=== PATIENT | female | born 1965 | race Caucasian/White ===

== ENCOUNTER → 2016-06-03 | Outpatient (CLI) | payer OTHER ==
[~2016-06-03] MED LIST: B-CO1CAP17 PO; CALCTAB7 PO; CHOL100027 PO; CLIN300C10 PO; CYAN100020 PO; IBUP-1427 PO; MECL1TAB42 PO; PROAIR INH; VITACAP26 PO
--- NOTE | 2016-06-03 15:48 | MAMMOGRAPHY REPORT ---
BILATERAL DIGITAL SCREENING MAMMOGRAM TOMOSYNTHESIS WITH CAD: 06/03/2016 CLINICAL HISTORY: Routine screening. Patient has no complaints. TECHNIQUE: Breast tomosynthesis in addition to standard 2D mammography was performed. Current study was also evaluated with a Computer Aided Detection (CAD) system. COMPARISON: Comparison is made to exams dated: 05/29/2015 mammogram, 05/23/2014 mammogram, and 05/02 mammogram - [facility]. BREAST COMPOSITION: The tissue of both breasts is heterogeneously dense, which may obscure small ma sses. FINDINGS: There is a small cluster of punctate microcalcifications in the right upper outer posteri or breast, for which additional spot magnification views are recommended. There is questionable arc hitectural distortion in the lateral posterior left breast, only seen on the CC tomosynthesis images (slice 28), for which additional spot compression tomosynthesis HD views and possibly ultrasound ar e recommended. There are numerous stable morphologically normal lymph nodes projecting in each axillary tail and ax illary region on the MLO views. A few benign rim calcifications in the breasts. No other suspiciou s mass, architectural distortion or cluster of microcalcifications is seen. IMPRESSION: ACR BI-RADS CATEGORY 0: INCOMPLETE EVALUATION: NEED ADDITIONAL IMAGING EVALUATION The small cluster of punctate microcalcifications in the right upper outer quadrant, and questionabl e architectural distortion in the left lateral breast need additional imaging evaluation. The patient will be called to schedule an appointment. Approximately 10% of breast cancers are not detected with mammography. A negative mammographic repor t should not delay biopsy if a clinically suggestive mass is present. Narda Pierre M.D. ay/:06/03/2016 14:08:47 Cuprous Chloride Helper: Dominga SOLIS(Maribel)(Alissa)(BD), [facility] letter sent: Addl Imaging 0 BI-RADS Code: ACR BI-RADS Category 0: Incomplete Evaluation: Need Additional Imaging Evaluation
== END | disposition home or self-care (01) ==
LOC: C.MAMM 11:38
PROVIDERS: ATTEND Family Medicine
DX: Z12.31 Encounter for screening mammogram for malignant neoplasm of breast (principal); R92.0 Mammographic microcalcification found on diagnostic imaging of breast; R92.8 Other abnormal and inconclusive findings on diagnostic imaging of breast

== ENCOUNTER → 2016-06-10 | Outpatient (CLI) | payer OTHER ==
--- NOTE | 2016-06-10 14:55 | MAMMOGRAPHY REPORT ---
BILATERAL DIGITAL DIAGNOSTIC MAMMOGRAM TOMOSYNTHESIS: 06/10/2016 CLINICAL HISTORY: 50-year-old woman called back from screening mammography for clustered microcalcif ications in the right breast, and questionable architectural distortion in the left breast. Patient has a history of a benign surgical excision in the left breast for a papilloma. TECHNIQUE: Spot magnification right CC and ML; spot compression CC and MLO 2-D digital and tomosynt hesis images of the left upper outer quadrant were obtained. COMPARISON: Comparison is made to exams dated: 06/03/2016 mammogram, 05/29/2015 mammogram, 05/23/2014 mammogram, 05/17/2013 mammogram, 05/11/2012 mammogram, and 04/29/2011 mammogram - [facility]. BREAST COMPOSITION: The tissue of both breasts is heterogeneously dense, which may obscure small ma sses. FINDINGS: There is near effacement of the question of architectural distortion in the lateral poste rior left breast on the CC view. No corresponding architectural distortion, suspicious mass or susp icious calcifications are seen on the spot compression MLO views of the left breast. When comparing to prior available mammograms, the spot compression left CC view appears similar dating back to at least 02/22/2008, therefore likely benign. There is a small grouping of layering microcalcification s in the superior right breast, approximately 6 cm from the nipple. 9 cm from the nipple, there is a tiny, 2 mm grouping of faint punctate microcalcifications in the upper outer posterior right breas t. When compared to prior available mammograms, these have been present dating back to at least 03/2012, therefore likely benign. However, a follow-up right mammogram including spot magnification views is recommended to ensure stability in 6 months. No suspicious mass, architectural distortion or other cluster of microcalcifications is seen in the visualized right breast. IMPRESSION: ACR-BI-RADS CATEGORY 3: PROBABLY BENIGN 1. Effacement of the question of architectural distortion in the lateral left breast with additional supplemental mammographic views. The parenchymal pattern of the spot compression left CC view appe ars very similar dating back to at least 2007, confirming normal fibroglandular tissue. No further close follow-up is needed at this time. 2. 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 However, given the increased conspicuity, repeat spot magnification views are recommended to ensure stability in 6 months. These results and recommendations were discussed with the patient at the time of the exam. She tent atively scheduled a follow-up appointment prior to leaving our department. Approximately 10% of breast cancers are not detected with mammography. A negative mammographic repor t should not delay biopsy if a clinically suggestive mass is present. Narda Pierre M.D. ay/:06/10/2016 10:10:47 Clerical Car Checker: Rosamaria SOLIS(Maribel)(Alissa), [facility] letter sent: Follow Up Recommended 3 BI-RADS Code: ACR-BI-RADS Category 3: Probably Benign
== END | disposition home or self-care (01) ==
LOC: C.MAMM 09:28
PROVIDERS: ATTEND Family Medicine
DX: R92.0 Mammographic microcalcification found on diagnostic imaging of breast (principal); R92.8 Other abnormal and inconclusive findings on diagnostic imaging of breast

== ENCOUNTER → 2016-08-05 | Outpatient (CLI) | payer OTHER | END | disposition home or self-care (01) | LOC: C.PAPS 11:44 | PROVIDERS: ATTEND Obstetrics & Gynecology | DX: Z01.419 Encounter for gynecological examination (general) (routine) without abnormal findings (principal) ==

== ENCOUNTER 2016-09-28 15:34 | Emergency (ER) | payer OTHER ==
[~2016-09-28] VITALS: Ht 157.5 cm; Wt 81.1 kg
[2016-09-28 15:40] VITALS: TEMP 37; Ht 157.5 cm; Wt 81.1 kg
[2016-09-28] MEDS ORDERED: CLIN300C10 PO (16:35)
[2016-09-28 16:43] VITALS: BP 113/58; PULSE 88; O2SAT 100
[2016-09-28] MEDS ORDERED: PROAIR INH (16:43)
[2016-09-28] MEDS ORDERED: CHOL100027 PO (16:43)
[2016-09-28] MEDS ORDERED: CYAN100020 PO (16:43)
[2016-09-28] MEDS ORDERED: MECL1TAB42 PO (16:43)
[2016-09-28] MEDS ORDERED: B-CO1CAP17 PO (16:43)
[2016-09-28] MEDS ORDERED: VITACAP26 PO (16:43)
[2016-09-28] MEDS ORDERED: IBUP-1427 PO (16:43)
[2016-09-28] MEDS ORDERED: CALCTAB7 PO (16:43)
--- NOTE | 2016-09-29 10:50 | EMERGENCY ROOM VISIT NOTE ---
ED Visit Note First contact with patient: 15:46 CHIEF COMPLAINT: I have a boil or tickle my right buttock. HISTORY OF PRESENT ILLNESS: Ms. Esparza is an 50-year-old white female who ambulates into the ED complaining of an unspecified skin lesion on her right buttock. She reports 2 days ago she was taking a shower and noticed a small lump when she was washing her buttocks. She was not able to visualize the area. She reports she scratched the area and felt a small popping sensation and did not think anymore of it. Throughout the rest of that day she noted some mild discomfort in the area and noted that the area seemed to be increasing in size and felt warm to the touch. Earlier this morning when she took a shower once again the area felt more tender, larger and warmer. Once again there was a small lump and she reports she squeezed it multiple times and she released a purulent drainage from the wound. She went to work and throughout the day she started having increasing pain and when she felt the area once again it felt more tender and warm to the touch. Currently she describes her discomfort in this area as an achy sensation that becomes sharp with palpation or sitting on her buttocks. At rest she rates her discomfort 5/10 and it increased as a 7/10 when the area is palpated. She has not identified any alleviating factors related to her discomfort. She has not taken any medications for her discomfort prior to arrival at the hospital. Associated with her discomfort she reports she has felt intermittently warm but denies any olive fevers, she has been nauseated but has not vomited. She denies chills, sweats, upper respiratory tract symptoms, cough, wheezing, shortness of breath, chest pain, abdominal pain, diarrhea, constipation, urinary symptoms REVIEW OF SYSTEMS: As noted above in History of Present Illness; a body systems were reviewed with the patient and found to be negative unless noted above otherwise. PAST MEDICAL HISTORY: Unspecified breast surgery and tubal ligation. CURRENT MEDICATION: Albuterol, vitamin D, Caltrate, meclizine, vitamin B12, Nephrocaps, vitamin C and E. ALLERGIES TO MEDICATION: Sulfa. SOCIAL HISTORY: Patient is currently employed; she lives with her family and feels safe in her home environment; she admits to tobacco and alcohol use. PHYSICAL EXAM: Vital Signs: Date Time Temp Pulse Resp B/P Pulse Ox O2 Delivery O2 Flow Rate FiO2 09/28/16 16:43 88 16 113/58 100 09/28/16 15:40 37.0 91 20 142/81 96 Room Air General: 50 year-old white female in mild acute distress due to pain, nontoxic appearing, afebrile and hemodynamically stable. Neurological: Awake, alert and oriented to person, place and time. Answering questions appropriately and following commands. Skin: Warm, dry and pink. Right Buttock: There is an indurated area in the medial border of the buttock but not extending into the gluteal fold which measures about 3 cm in diameter. The area is not fluctuant and there is no pointing. The area is open and shows a small amount of dried purulent material on the external tissues. No additional material was able to be expressed. There is a moderate son of inflammation around the fluctuant area but no lymphangitis. Thorax: Lungs sounds are clear to auscultation and equal bilaterally with symmetrical chest wall movement. No wheezing, rales or rhonchi. No increased respiratory effort. Abdomen: Flat, soft and nontender. Positive bowel sounds in all quadrants. No guarding or rigidity. ED COURSE: Patient is assessed as noted above. Patient was offered pain medications and refused. Her area of erythema was demarcated with a pen. Patient was educated about her condition and instructed on her treatment plan; she verbalized understanding and agreement with this plan. CLINICAL IMPRESSION: Cellulitis and early abscess of the right buttock. DISPOSITION: Patient discharged to home in stable condition; prior to departure she was reassessed and subjectively reported she was feeling better. PLAN: Comfort measures and increasing signs of infection were discussed with the patient. Patient was prescribed clindamycin 300 mg 4 times a day for 10 days. Patient was encouraged to return to the emergency department in 36-48 hours for recheck or sooner for any signs of increasing infection or any new/concerning symptoms.
== END 2016-09-28 16:49 | disposition home or self-care (01) ==
LOC: C.EDB 15:36 → C.EDD 16:49
DX: L03.317 Cellulitis of buttock (principal); L02.31 Cutaneous abscess of buttock; F17.200 Nicotine dependence, unspecified, uncomplicated; Z98.51 Tubal ligation status

== ENCOUNTER 2016-09-30 13:39 | Emergency (ER) | payer OTHER ==
[~2016-09-30] VITALS: Ht 157.5 cm; Wt 80.4 kg
[2016-09-30 13:58] VITALS: TEMP 37.7; Ht 157.5 cm; Wt 80.4 kg
--- NOTE | 2016-09-30 15:24 | DIAGNOSTIC IMAGING REPORT ---
Ultrasound right buttock RIGHT EXTREMITY NONVASCULAR LIMITED CLINICAL HISTORY: R buttock cellulitis vs abscess Right infection TECHNIQUE: Ultrasound COMPARISON STUDY: None FINDINGS: Ultrasound over the right buttock region confirms presence of a subcutaneous rather complex irregular collection measuring approximate 4 x 2 cm. This is a deep to what appears to be a superficial scab of the skin surface. Material within this is rather complex. Diagnostic considerations must include a small abscess with surrounding mild cellulitis-type change. IMPRESSION: 1. Irregular 4 x 2 cm complex collection deep to a superficial skin lesion. 2. Diagnostic considerations must include cellulitis with a central complex collection or abscess. Electronically signed by: Saul Hidalgo M.D. 09/30/2016 3:24 PM Dictated Date/Time: 09/30/2016 3:16 PM
[2016-09-30] MEDS ORDERED: XYLOCAINE 1%/SOD BICARB 20 ML VIAL INFIL ONE (15:30)
[2016-09-30 16:26] VITALS: BP 118/57; PULSE 91; O2SAT 96
--- NOTE | 2016-09-30 22:23 | EMERGENCY ROOM VISIT NOTE ---
History First contact with patient: 14:14 Chief Complaint: WOUND INFECTION Stated Complaint: ABCESS ON RIGHT BUTTOCK Nursing Triage Summary: RIGHT BUTTUCKS ABCESS History of Present Illness The patient is a 50 year old female who presents to the Emergency Room with complaints of a persisting infection of the right buttock. The patient was here 2 days ago for evaluation, and provided a prescription for clindamycin. Imaging studies or attempted I and D was not performed given examination findings. The patient reports that the pain and swelling have not significantly worsened, but it feels like she is sitting on something the size of an orange. She has not had any fevers or chills, and rates her discomfort a 9 out of 10. Review of Systems 10 system review was performed and was negative except for pertinent positives and negatives as indicated in history of present illness Past Medical/Surgical History Medical Problems: (1) Nicotine Dependence, Unspecified, Uncomplicated Surgical Problems: (1) History of tubal ligation (2) Status post breast lumpectomy Family History FH: cancer FH: diabetes mellitus FH: heart disease FH: hypertension FH: kidney disease Social History Smoking Status: Current Some Day Smoker Alcohol Use: occasionally Marital Status: Housing Status: lives with family Occupation Status: employed Current/Historical Medications Scheduled Calcium Carbonate-Vitamin D W/ (Caltrate 600 Plus), 1 TAB PO BID Cholecalciferol (Vitamin D 1000 Unit), 2,000 INTER.UNIT PO DAILY Clindamycin Hcl (Clindamycin Hcl), 300 MG PO QID Ibuprofen Tab (Motrin), 600 MG PO TID Vitamin B Cmplx/Vitc/Folic Ac (Nephrocaps), 1 CAP PO DAILY Vitamins C & E (Vitamin C), 1 CAP PO DAILY Scheduled PRN Meclizine Hcl (Meclizine Hcl), 1 TAB PO TID PRN for Dizziness or Vertigo [Proair], 2 PUFF INH Q4 PRN for Wheezing Miscellaneous Medications Cyanocobalamin (Vitamin B12), 1 TAB PO Allergies Coded Allergies: Sulfa Antibiotics (Verified Allergy, Severe, RASH, 09/30/16) Physical Exam Vital Signs Date Time Temp Pulse Resp B/P Pulse Ox O2 Delivery O2 Flow Rate FiO2 09/30/16 16:26 91 18 118/57 96 09/30/16 15:19 81 16 117/60 96 Room Air 09/30/16 13:58 37.7 95 18 116/67 98 Room Air Physical Exam CONSTITUTIONAL: Obese female, alert and oriented X 3 with positive affect. HEENT: Normocephalic, atraumatic. Pupils equal, round and reactive. NECK: Full active range of motion without discomfort. RESPIRATORY: Clear to auscultation bilaterally with no wheezing, crackles, rhonchi or stridor. CARDIOVASCULAR: Regular rate and rhythm with no murmurs, rubs or gallops. GASTROINTESTINAL: Bowel sounds present in all quadrants. Soft and nontender to palpation. MUSCULOSKELETAL: Full range of motion of all joints without discomfort. INTEGUMENTARY: Examination shows a large area of induration and overriding erythema of the medial right buttock. No drainage appreciated. There is no significant fluctuance. NEUROLOGIC: No focal neurologic deficits noted. Medical Decision & Procedures ER Provider Diagnostic Interpretation: Ultrasound of the buttock shows a 4 x 2 cm collection of fluid, likely an abscess given patient history and clinical exam findings. Radiologist report is as follows: Ultrasound right buttock RIGHT EXTREMITY NONVASCULAR LIMITED CLINICAL HISTORY: R buttock cellulitis vs abscess Right infection TECHNIQUE: Ultrasound COMPARISON STUDY: None FINDINGS: Ultrasound over the right buttock region confirms presence of a subcutaneous rather complex irregular collection measuring approximate 4 x 2 cm. This is a deep to what appears to be a superficial scab of the skin surface. Material within this is rather complex. Diagnostic considerations must include a small abscess with surrounding mild cellulitis-type change. IMPRESSION: 1. Irregular 4 x 2 cm complex collection deep to a superficial skin lesion. 2. Diagnostic considerations must include cellulitis with a central complex collection or abscess. Procedure Patient consented to I&D procedure under local anesthesia. The area was painted with iodine and allowed to dry. Sterile field was created. Using buffered 1% lidocaine without epinephrine, good local anesthesia was administered. Using a #11 scalpel, a 1.5 cm incision was made with copious purulent drainage. Cultures were collected. Using needle drivers, underlying loculations were further opened. Approximately 10 mL of purulent drainage was expressed. The wound was then irrigated, then loosely packed with quarter-inch packing. A bacitracin dressing was applied. The patient tolerated the procedure well. ED Course Patient history and physical exam were performed. Nurse's notes were reviewed. Vital signs were reviewed, showing a temperature of 37.7C. I did review the patient's documentation from her ER visit on Friday. It is noted that she has an allergy to sulfa, likely the reason why she was treated with clindamycin. The patient reports slightly worsening symptoms. Given the patient's fever, I did explain that she likely has an abscess formation that will need drained. I did suggest performing an ultrasound first, and the patient was in agreement. The patient refused any analgesics or antiemetics. Ultrasound studies showed a 4 x 2 collection of fluid, likely abscess given patient history and clinical exam findings. I&D procedure was performed under local anesthesia. Cultures were collected and ordered. The patient was instructed to continue and complete her current antibiotics. She was instructed to remove the packing in 48 hours, or return to the emergency department. The patient reports that she would rather do it herself. She was instructed to return for any progressively worsening swelling, pain or fever. She refused any prescription analgesics, was happy with plan of care, and rated her discomfort a 4 out of 10 at the time of discharge. Impression Primary Impression: Abscess of right buttock Departure Information Referrals Monica Palacio,Ck.O. (PCP) Patient Instructions My [facility]
--- NOTE | 2016-10-02 12:16 | Pharmacy Progress Note ---
ED Pharmacist Culture FollowUp Date of Service: October 02, 2016. Culture from R buttock abscess is growing staph aureus, oxacillin sensitive. She had been placed on Clindamycin 300mg PO QID x 10 days. The organism is reported as sensitive to clindamycin. I contacted lab and spoke with Henrique to confirm the organism does not have inducible clindamycin resistance as the organism was resistant to erythromycin. The organism does not have inducible clindamycin resistance and should be effective for treatment of this isolate. No action required at this time.
== END 2016-09-30 16:27 | disposition home or self-care (01) ==
LOC: C.EDB 13:40 → C.EDC 16:27
DX: L02.31 Cutaneous abscess of buttock (principal); F17.210 Nicotine dependence, cigarettes, uncomplicated; Z98.51 Tubal ligation status; Z80.9 Family history of malignant neoplasm, unspecified; Z83.3 Family history of diabetes mellitus; Z82.49 Family history of ischemic heart disease and other diseases of the circulatory system; Z84.1 Family history of disorders of kidney and ureter; Z79.899 Other long term (current) drug therapy; E66.9 Obesity, unspecified; Z68.32 Body mass index [BMI] 32.0-32.9, adult

== ENCOUNTER → 2016-12-09 | Outpatient (CLI) | payer OTHER ==
--- NOTE | 2016-12-09 14:29 | MAMMOGRAPHY REPORT ---
UNILATERAL RIGHT DIGITAL DIAGNOSTIC MAMMOGRAM TOMOSYNTHESIS WITH CAD: 12/09/2016 CLINICAL HISTORY: 51 year-old woman presents for follow-up in the right breast for probably benign pu nctate microcalcifications grouped in the upper outer quadrant. TECHNIQUE: Right breast CC and MLO 2-D digital and tomosynthesis images were obtained. Spot magnific ation right CC and ML views were also obtained. Current study was also evaluated with a Computer Aid ed Detection (CAD) system. COMPARISON: Comparison is made to exams dated: 06/10/2016 mammogram, 06/03/2016 mammogram, 05/29/2015 ma mmogram, 05/23/2014 mammogram, 05/17/2013 mammogram, and 05/11/2012 mammogram - [facility]. BREAST COMPOSITION: The tissue of the right breast is heterogeneously dense, which may obscure small masses. FINDINGS: The right breast parenchymal pattern is similar to prior exams. There are stable benign-ap pearing lymph nodes projecting over the right superior posterior breast and pectoralis muscle on the MLO view. No obvious new mass, focal area of architectural distortion or developing asymmetry is see n. The spot magnification views of the right breast redemonstrate a 2 mm grouping of punctate microcalci fications in the upper outer posterior breast. These are unchanged comparing to the spot magnificati on views obtained 06/21/2016 and also likely present dating back to 2011, therefore likely benign. T here are a few other loose groupings of benign-appearing micro-calcifications in the superior right b reast, some of which demonstrate tea cupping on the ML view confirming benign milk of calcium. No ne w suspicious microcalcifications are identified. Another short interval follow-up diagnostic mammogr am including repeat spot magnification views is recommended to ensure longer stability. IMPRESSION: ACR-BI-RADS CATEGORY 3: PROBABLY BENIGN There is a stable 2 mm cluster of punctate microcalcifications in the right upper outer quadrant, whi ch has likely been present and unchanged dating back to 2011, given slight differences in mammographi c technique. Another six-month follow-up diagnostic mammogram including repeat spot magnification vi ews is read made it to ensure longer stability. Annual left mammography will also be due at that keila e. These results and recommendations were discussed with the patient at the time of the exam. Approximately 10% of breast cancers are not detected with mammography. A negative mammographic report should not delay biopsy if a clinically suggestive mass is present. Narda Pierre M.D. ay/:12/09/2016 12:01:16 Taxi Truck Driver: Hayley DIOR)(Alissa), [facility] letter sent: Follow Up Recommended 3 BI-RADS Code: ACR-BI-RADS Category 3: Probably Benign
== END | disposition home or self-care (01) ==
LOC: C.MAMM 10:41
PROVIDERS: ATTEND Physician Assistant
DX: R92.0 Mammographic microcalcification found on diagnostic imaging of breast (principal); N64.89 Other specified disorders of breast

== ENCOUNTER 2017-04-12 12:12 | Emergency (ER) | payer OTHER ==
[~2017-04-12] VITALS: Ht 157.5 cm; Wt 86.2 kg
[2017-04-12 12:29] VITALS: BP 129/78; PULSE 82; TEMP 36.7; O2SAT 98; Ht 157.5 cm; Wt 86.2 kg
[2017-04-12] MEDS ORDERED: LIDOCAINE/EPINEPHRINE 1% 20 ML VIAL INFIL STA (12:41)
[2017-04-12] MEDS ORDERED: DOXYCYCLINE HYCLATE 100 MG CAP PO ONE (12:45)
[2017-04-12] MEDS ORDERED: DOXY100C76 PO (13:00)
--- NOTE | 2017-04-12 13:07 | EMERGENCY ROOM VISIT NOTE ---
ED Visit Note First contact with patient: 12:33 CHIEF COMPLAINT: Infection of the Rt medial thigh HISTORY OF PRESENT ILLNESS: This 51 y/o patient presents to the emergency department after they noticed a hard, red, tender area to Rt medial thigh. It is slowly getting larger, more painful and tender. No fever, chills, or loss of appetite. There has been no drainage from the area. There was no injury to the area preceding the infection. They rate the pain as throbbing and 4/10. Tetanus shot is up to date. They have tried warm compresses. The patient is not diabetic. The patient has a history of subcutaneous abscesses. REVIEW OF SYSTEMS: A review of systems was performed with positives and pertinent negatives listed in the history of present illness. All other systems were reviewed and are negative. ALLERGIES: Clindamycin, Sulfa MEDICATIONS: Ibuprofen, Meclizine PMH: knee effusion, Staph abscess SOCIAL HISTORY: , employed as hairdresser PHYSICAL EXAM: Vital Signs: Reviewed Nurse's notes, vital signs stable. GENERAL : 51 year old female no acute distress, non toxic in appearance, well- developed well-nourished. SKIN: There is an erythematous indurated area Rt medial upper thigh which measures about 5 cm in diameter. It is fluctuant but there is no pointing or drainage. There is a zone of inflammation around it but no lymphangitis. Capillary refill less than 2 seconds. MUSCULOSKELETAL: There is normal range of motion of the Rt leg. EMERGENCY DEPARTMENT COURSE: I examined the patient. Verbal consent was obtained to perform the procedure. After saline and Betadine cleansing and 6 mL of 1% buffered lidocaine anesthesia, the abscess was incised with a number 22 scalpel blade. A large amount of purulent material was released with more expressed by pressure. A swab was obtained for culture. The abscess cavity was further probed with a needle emergency vehicle driver and the deep pocket expressed. The abscess cavity was then copiously irrigated with sterile saline under pressure. The area was then packed with bacitracin soaked packing. The area was cleaned with sterile saline and dressed with bacitracin and a bulky bandage. The patient tolerated the procedure well. The patient was discharged home in stable condition. DIAGNOSIS: Abscess of the Rt thigh DISCHARGE INSTRUCTIONS & TREATMENT: Change the dressing if it becomes soiled or blood-stained and remove the drain in about 36 hours. Doxycyline 100 mg BIDx 10 days. Return if any problems such as fever or increasing pain. See a general surgeon if an abscess re-occurs in the same area in the future for consideration of excision of the cyst. Current/Historical Medications Scheduled Calcium Carbonate-Vitamin D W/ (Caltrate 600 Plus), 1 TAB PO BID Cholecalciferol (Vitamin D 1000 Unit), 2,000 INTER.UNIT PO DAILY Doxycycline Monohydrate (Monodox), 100 MG PO BID Ibuprofen Tab (Motrin), 600 MG PO TID Vitamin B Cmplx/Vitc/Folic Ac (Nephrocaps), 1 CAP PO DAILY Vitamins C & E (Vitamin C), 1 CAP PO DAILY Scheduled PRN Meclizine Hcl (Meclizine Hcl), 1 TAB PO TID PRN for Dizziness or Vertigo [Proair], 2 PUFF INH Q4 PRN for Wheezing Miscellaneous Medications Cyanocobalamin (Vitamin B12), 1 TAB PO Allergies Coded Allergies: Sulfa Antibiotics (Verified Allergy, Severe, RASH, 09/30/16) Clindamycin (Verified Allergy, Intermediate, GENERALIZED RASH, 04/12/17) Vital Signs Date Time Temp Pulse Resp B/P (MAP) Pulse Ox O2 Delivery O2 Flow Rate FiO2 04/12/17 12:29 36.7 82 18 129/78 98 Room Air Medications Administered Medications (Trade) Dose Ordered Sig/Thais Route Start Time Stop Time Status Last Admin Dose Admin Doxycycline Hyclate (Vibramycin Cap) 100 mg ONE ONCE PO 04/12/17 12:45 04/12/17 12:46 DC 04/12/17 13:02 100 MG Departure Information Impression Primary Impression: Abscess of right thigh Dispostion Home / Self-Care Condition GOOD Prescriptions Doxycycline Monohydrate (Monodox) 100 Mg Cap 100 MG PO BID for 10 Days, #20 CAP Prov: Fabian Rubio MD 04/12/17 Forms WORK / SCHOOL INSTRUCTIONS, HOME CARE DOCUMENTATION FORM, IMPORTANT VISIT INFORMATION Patient Instructions [facility], ED Abscess IandD Additional Instructions TAKE DOXY WITH FOOD Packing can be removed within 48 hours Culture results are usually available in approx 48 hours You have been examined and treated today on an emergency basis only. This is not a substitute for, or an effort to provide, complete comprehensive medical care. It is impossible to recognize and treat all injuries or illnesses in a single emergency department visit. It is therefore important that you follow up closely with Dr Palacio. Call as soon as possible for an appointment. Thank you for your time and consideration. I look forward to speaking with you again soon. Please don't hesitate to call us if you have any questions.
== END 2017-04-12 13:14 | disposition home or self-care (01) ==
LOC: C.EDB 12:14 → C.EDC 13:14
DX: L02.415 Cutaneous abscess of right lower limb (principal); Z79.1 Long term (current) use of non-steroidal anti-inflammatories (NSAID)

== ENCOUNTER 2017-04-14 11:52 | Emergency (ER) | payer OTHER ==
[~2017-04-14] VITALS: Ht 157.5 cm; Wt 84.5 kg
[~2017-04-14 11:52] MED LIST changes: -CLIN300C10 PO; +DOXY100C76 PO
[2017-04-14 11:56] VITALS: BP 143/82; PULSE 98; TEMP 36.8; O2SAT 97; Ht 157.5 cm; Wt 84.5 kg
--- NOTE | 2017-04-14 14:51 | EMERGENCY ROOM VISIT NOTE ---
History First contact with patient: 11:59 Chief Complaint: WOUND RECHECK Stated Complaint: ABCESS TO RECHECK Nursing Triage Summary: Pt presents for wound recheck to right thigh and to have packing removed. States little drainge, still having pain d/t location of where the abscess is and trying to walk. History of Present Illness The patient is a 51 year old female who presents to the Emergency Room for packing removal from a right medial fine abscess that was drained in our department 2 days ago. The patient has been doxycycline antibiotics as prescribed. She does report improving pain, but persistent discomfort because aware the wound is located. She rates her discomfort a 5 out of 10. Review of Systems 6 system review was performed and was negative except for pertinent positives and negatives as indicated in history of present illness Past Medical/Surgical History Medical Problems: (1) Nicotine Dependence, Unspecified, Uncomplicated Surgical Problems: (1) History of tubal ligation (2) Status post breast lumpectomy Family History FH: cancer FH: diabetes mellitus FH: heart disease FH: hypertension FH: kidney disease Social History Smoking Status: Current Every Day Smoker Alcohol Use: occasionally Marital Status: Housing Status: lives with family Occupation Status: employed Current/Historical Medications Scheduled Calcium Carbonate-Vitamin D W/ (Caltrate 600 Plus), 1 TAB PO BID Cholecalciferol (Vitamin D 1000 Unit), 2,000 INTER.UNIT PO DAILY Doxycycline Monohydrate (Monodox), 100 MG PO BID Ibuprofen Tab (Motrin), 600 MG PO TID Vitamin B Cmplx/Vitc/Folic Ac (Nephrocaps), 1 CAP PO DAILY Vitamins C & E (Vitamin C), 1 CAP PO DAILY Scheduled PRN Meclizine Hcl (Meclizine Hcl), 1 TAB PO TID PRN for Dizziness or Vertigo [Proair], 2 PUFF INH Q4 PRN for Wheezing Miscellaneous Medications Cyanocobalamin (Vitamin B12), 1 TAB PO Physical Exam Vital Signs Date Time Temp Pulse Resp B/P (MAP) Pulse Ox O2 Delivery O2 Flow Rate FiO2 04/14/17 11:56 36.8 98 18 143/82 97 Room Air Physical Exam CONSTITUTIONAL: Obese female, alert and oriented X 3 with positive affect. HEENT: Normocephalic, atraumatic. Pupils equal, round and reactive. MUSCULOSKELETAL: With a female nurse rn social services present, examination of the proximal medial right inner thigh shows mild peripheral edema about an incision site. A small amount of packing was removed without any persistent purulent drainage or fluctuance. A dry dressing was applied. NEUROLOGIC: No focal neurologic deficits noted. Medical Decision & Procedures ED Course Patient history and physical exam were performed. Nurse's notes were reviewed. Vital signs were reviewed and were normal. I also reviewed wound cultures from 2 days ago, showing rare coag-negative Staphylococcus. The patient was advised that her antibiotic should provide adequate coverage for this infection. She was encouraged to keep the area clean and covered with a dry dressing to help promote further drainage. She was instructed to return to the bridge department for signs of worsening infection, including pain, swelling or developing fever. The patient reports that she does have a history of multiple abscesses. She was advised that if this abscess recurs, she should follow up with dermatology or general surgeon for further management. The patient was happy with plan of care, voiced understanding of all discharge instructions, and rated her discomfort a 3 out of 10 at the conclusion of my exam. Medical Decision Medication Reconcilliation Current Medication List: was personally reviewed by me Blood Pressure Screening Patient's blood pressure: Normal blood pressure Impression Primary Impression: Right inner thigh abscess Additional Impression: Encounter for wound re-check Departure Information Dispostion Home / Self-Care Condition GOOD Forms HOME CARE DOCUMENTATION FORM, IMPORTANT VISIT INFORMATION Patient Instructions My [facility] Additional Instructions Keep the wound clean and covered with an antibiotic ointment and drainage until the wound further closes. Continue and finish all antibiotics as previously prescribed. Return to the emergency department for any re-developing redness, swelling, pain or fever. If infection occurs in the same area in the future, suggest follow-up with a oil well engineer after it re-heals to discuss surgical intervention. Problem Qualifiers
== END 2017-04-14 12:20 | disposition home or self-care (01) ==
LOC: C.EDB 11:53 → C.EDD 12:20
DX: L02.415 Cutaneous abscess of right lower limb (principal); Z09 Encounter for follow-up examination after completed treatment for conditions other than malignant neoplasm; F17.210 Nicotine dependence, cigarettes, uncomplicated; Z80.9 Family history of malignant neoplasm, unspecified; Z83.3 Family history of diabetes mellitus; Z82.49 Family history of ischemic heart disease and other diseases of the circulatory system; Z84.1 Family history of disorders of kidney and ureter

== ENCOUNTER → 2017-06-16 | Outpatient (CLI) | payer OTHER ==
[~2017-06-16] MED LIST changes: -DOXY100C76 PO
--- NOTE | 2017-06-16 14:48 | MAMMOGRAPHY REPORT ---
BILATERAL DIGITAL DIAGNOSTIC MAMMOGRAM TOMOSYNTHESIS WITH CAD: 06/16/2017 CLINICAL HISTORY: Close follow-up of a probably benign grouping of punctate microcalcifications in th e upper outer posterior right breast. Also time of annual bilateral mammograms. TECHNIQUE: Bilateral CC and MLO 2-D and tomosynthesis images, spot magnification right CC and ML view s were obtained. Current study was also evaluated with a Computer Aided Detection (CAD) system. COMPARISON: Comparison is made to exams dated: 12/09/2016 mammogram, 06/10/2016 mammogram, 06/03/2016 christopher mogram, 05/29/2015 mammogram, 05/23/2014 mammogram, and 05/17/2013 mammogram - [facility]. BREAST COMPOSITION: The tissue of both breasts is heterogeneously dense, which may obscure small mas ses. FINDINGS: The glandular pattern is similar to prior mammograms. There are a few benign rim calcifica tions in the breasts. No obvious new masses, areas of architectural distortion, asymmetries or new c alcifications are identified bilaterally. Spot magnification views of the right upper outer quadrant redemonstrate a 1.6 mm grouping of punctat e microcalcifications in the upper outer posterior breast that are stable comparing to spot magnifica tion views performed 06/10/2016, and also likely stable to prior 2-D mammograms dating back to 2012, but are new comparing back to 2009. Another 12 month follow-up right diagnostic mammogram including spot magnification views is recommended to ensure longer stability. There are a few layering calcifi cations in the middle one third of the right breast, compatible with benign milk of calcium. IMPRESSION: ACR-BI-RADS CATEGORY 3: PROBABLY BENIGN Stable bilateral mammograms, including a 1.6 mm grouping of punctate microcalcifications in the right upper outer posterior breast. Another 12 month follow-up right diagnostic tomosynthesis mammogram i ncluding spot magnification views is recommended to ensure longer stability. Annual left mammography will also be due at that time. These results and recommendations were discussed with the patient at the time of the exam. She tenta tively scheduled a follow-up appointment prior to leaving our department. Approximately 10% of breast cancers are not detected with mammography. A negative mammographic report should not delay biopsy if a clinically suggestive mass is present. Narda Pierre M.D. ay/:06/16/2017 10:35:52 Industrial Insulator: Kaila DIOR)(Alissa), [facility] letter sent: Follow Up Recommended 3 BI-RADS Code: ACR-BI-RADS Category 3: Probably Benign
== END | disposition home or self-care (01) ==
LOC: C.MAMM 09:53
PROVIDERS: ATTEND Physician Assistant
DX: R92.0 Mammographic microcalcification found on diagnostic imaging of breast (principal)